=== PATIENT | male | born 1990 | race Caucasian/White ===

== ENCOUNTER 2020-12-23 18:04 | Emergency (ER) | payer OTHER ==
[~2020-12-23] VITALS: Ht 188 cm; Wt 144.0 kg
[~2020-12-23 18:04] MED LIST: PHEN30CA3 PO
[2020-12-23] MEDS ORDERED: PHEN15CA2 PO (18:42)
[2020-12-23] MEDS ORDERED: LIDOCAINE 4% TOPICAL SOLUTION 50 ML TP ONE (19:00)
--- NOTE | 2020-12-23 20:12 | NUR ---
JUSTINO FLANNERY IN ROOM TO ASSESS PT FOR BLOCKAGE.
[2020-12-23] MEDS ORDERED: MAALOX/HYOSCYAMINE/LIDOCAINE 45 ML BTL PO ONE (20:30)
[2020-12-23 20:36] VITALS: BP 122/72
[2020-12-23] MEDS ORDERED: MAALOX/HYOSCYAMINE/LIDOCAINE 45 ML BTL ONE (20:45)
== END 2020-12-23 21:08 | disposition home or self-care (01) ==
LOC: ED 21:00
DX: S10.15XA Superficial foreign body of throat, initial encounter (principal); F17.200 Nicotine dependence, unspecified, uncomplicated; X58.XXXA Exposure to other specified factors, initial encounter; Y93.89 Activity, other specified; Y92.89 Other specified places as the place of occurrence of the external cause; Y99.8 Other external cause status
CPT/HCPCS: 99284

== ENCOUNTER → 2020-12-25 | Outpatient (CLI) | payer OTHER ==
[~2020-12-25] MED LIST changes: +PHEN15CA2 PO
== END | disposition home or self-care (01) ==
LOC: RAD 15:51
PROVIDERS: ATTEND Family Medicine
DX: K82.0 Obstruction of gallbladder (principal)
CPT/HCPCS: 76705